=== PATIENT | male | born 1955 | race Caucasian/White ===

== ENCOUNTER 2017-10-05 17:04 | Emergency (ER) | payer OTHER ==
[~2017-10-05] VITALS: Ht 152.4 cm; Wt 47.6 kg
[2017-10-05 17:18] VITALS: Ht 152.4 cm; Wt 47.6 kg
[2017-10-05 21:00] VITALS: BP 163/86
== END 2017-10-05 21:00 | disposition home or self-care (01) ==
LOC: ED 17:04
DX: S00.03XA Contusion of scalp, initial encounter (principal); M50.30 Other cervical disc degeneration, unspecified cervical region; Z99.2 Dependence on renal dialysis; Z89.432 Acquired absence of left foot; I12.0 Hypertensive chronic kidney disease with stage 5 chronic kidney disease or end stage renal disease; E11.22 Type 2 diabetes mellitus with diabetic chronic kidney disease; N18.6 End stage renal disease; W07.XXXA Fall from chair, initial encounter; Y93.89 Activity, other specified; Y92.89 Other specified places as the place of occurrence of the external cause; Y99.8 Other external cause status

== ENCOUNTER 2018-01-10 11:03 | Emergency (ER) | payer OTHER ==
[~2018-01-10] VITALS: Ht 162.6 cm; Wt 65.8 kg
[2018-01-10 11:09] VITALS: Ht 162.6 cm; Wt 65.8 kg
[2018-01-10 11:53] LABS: BASOPHIL % 0.5 % (0-2); PLATELET COUNT 119 x10^3mcL (130-400); RED CELL DISTRIBUTION WIDTH 15.8 % (11.5-14.5)
[2018-01-10 11:58] LABS: CALCIUM 8.9 mg/dL (8.5-10.1); CARBON DIOXIDE 26.2 mmol/L (21-32); CREATININE SERUM 4.7 mg/dL (0.7-1.3); POTASSIUM SERUM 4.5 mmol/L (3.5-5.1)
[2018-01-10 14:25] VITALS: BP 114/57
== END 2018-01-10 14:25 | disposition home or self-care (01) ==
LOC: ED 11:03
PROVIDERS: Emergency Medicine
DX: I70.202 Unspecified atherosclerosis of native arteries of extremities, left leg (principal); E11.22 Type 2 diabetes mellitus with diabetic chronic kidney disease; I12.0 Hypertensive chronic kidney disease with stage 5 chronic kidney disease or end stage renal disease; N18.5 Chronic kidney disease, stage 5; Z89.112 Acquired absence of left hand; Z89.432 Acquired absence of left foot
CPT/HCPCS: J3010; Q0092

== ENCOUNTER 2018-01-31 13:38 | Emergency (ER) | payer OTHER ==
[2018-01-31 15:36] VITALS: BP 111/59
== END 2018-01-31 15:36 | disposition home or self-care (01) ==
LOC: ED 13:38
DX: E11.42 Type 2 diabetes mellitus with diabetic polyneuropathy (principal); I73.9 Peripheral vascular disease, unspecified; Z89.432 Acquired absence of left foot; Z99.2 Dependence on renal dialysis
CPT/HCPCS: J2270; Q0162

== ENCOUNTER 2018-02-06 15:58 | Emergency (ER) | payer OTHER ==
[~2018-02-06] VITALS: Ht 167.6 cm; Wt 56.2 kg
[2018-02-06 15:58] VITALS: Ht 167.6 cm; Wt 56.2 kg
[2018-02-06 17:20] VITALS: BP 140/64
== END 2018-02-06 17:21 | disposition home or self-care (01) ==
LOC: ED 15:58
DX: T25.222A Burn of second degree of left foot, initial encounter (principal); T25.221A Burn of second degree of right foot, initial encounter; I10 Essential (primary) hypertension; M19.90 Unspecified osteoarthritis, unspecified site; E11.40 Type 2 diabetes mellitus with diabetic neuropathy, unspecified; Z89.432 Acquired absence of left foot; Z99.2 Dependence on renal dialysis; Z98.890 Other specified postprocedural states; X11.8XXA Contact with other hot tap-water, initial encounter; Y93.89 Activity, other specified; Y92.89 Other specified places as the place of occurrence of the external cause; Y99.8 Other external cause status